=== PATIENT | male | born 1950 | race Caucasian/White ===

== ENCOUNTER 2017-11-29 08:00 | Outpatient (RCR) | payer MEDICARE, OTHER, SELFPAY ==
--- NOTE | 2017-11-24 14:39 | PTTR_ITS ---
DATE: 11/24/17 SUBJECTIVE: I am doing okay for the most part. OBJECTIVE: Therapeutic procedures ([id number]). * X HEP review: TEchnique review and corrective modification where appropriate. * X See flow sheet: Patient tolerated all strengthening activities well. * X Provided skilled instruction in proper exercise performance: [] * X Provided skilled manual cues to facilitate proper muscle recruitment and/ or movement pattern: [] * X Other: Patient was treated with additional stability motor control activities from the half kneel position as well as intrinsic strengthening. Direct treatment time: 30 minutes of direct patient care.
--- NOTE | 2017-11-27 11:57 | PTTR_ITS ---
DATE: 11/27/17 SUBJECTIVE: I am doing okay for the most part. OBJECTIVE: Therapeutic procedures ([id number]). * X HEP review: Technique review and corrective modification where appropriate. * X See flow sheet: Completed all activities per flow sheet. * X Provided skilled instruction in proper exercise performance: [] * X Provided skilled manual cues to facilitate proper muscle recruitment and/ or movement pattern: [] * X Other: Patient completed his corrective activity with good tolerance Direct treatment time: 30 minutes of direct patient care.
--- NOTE | 2017-11-29 11:01 | PTTR_ITS ---
DATE: 11/29/17 SUBJECTIVE: I am doing okay for the most part. OBJECTIVE: Therapeutic procedures ([id number]). * X HEP review: Technique review and corrective modification where appropriate. * X See flow sheet: Completed all corrective activities. * X Provided skilled instruction in proper exercise performance: [] * X Provided skilled manual cues to facilitate proper muscle recruitment and/ or movement pattern: [] * X Other: Patient was focused on his sub set of activities with greater emphasis on stability motor control and correct recruitment. He will now spend 3 weeks on the Minimally supervised program for stability and strengthening and will see him for follow up after that interval of time. Direct treatment time: 40 minutes of direct patient care.
== END 2017-12-15 23:59 | disposition home or self-care (01) ==
LOC: PT 08:00
PROVIDERS: PCP Internal Medicine; Referring Provider Internal Medicine; Visit Provider Internal Medicine
DX: M54.5 Low back pain (principal); M25.552 Pain in left hip; M51.16 Intervertebral disc disorders with radiculopathy, lumbar region; Z96.641 Presence of right artificial hip joint
CPT/HCPCS: 97110

== ENCOUNTER 2019-10-01 17:47 | Inpatient (IN) | payer MEDICARE, OTHER, SELFPAY ==
[2019-10-01] VITALS (21 sets, daily range): BP systolic 126–147; BP diastolic 65–76; PULSE 52–64; RESP 17–22; TEMP 36.6–36.7; O2SAT 94–100
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
[2019-10-01] MEDS: Ondansetron 4 MG/2 ML VIAL IVP (18:16)
[2019-10-01] MEDS: Normal Saline 1,000 ML 1000 ML IV (18:17)
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
[2019-10-01 18:41] LABS: Abs Immature Grans 0.06 k/cumm (0.0-0.09); Absolute Basophil Count 0.02 k/cumm (0.0-0.2); Absolute Lymphocyte Count 1.81 k/cumm (1.2-3.4); Absolute Monocyte Count 0.58 k/cumm (0.11-0.7); Absolute Neutrophil Count 4.29 k/cumm (1.2-6.7); Basophils % 0.3; Eosinophils % 2.9; HCT 40.9 % (40.0-50.0); Immature Grans % 0.9 %; Mean Corp. HGB Concentration 34.2 g/dL (32.0-36.0); Mean Corpuscular Hemoglobin 30.7 pg (27.0-33.0); Mean Corpuscular Volume 89.7 fL (80-95); Mean Platelet Volume 11.2 fL (8.0-11.0); Monocytes % 8.3; Neutrophils % 61.6; Platelet Count 215 x1000/uL (130-400); RBC 4.56 m/cumm (4.50-6.00); RBC Distribution Width 11.7 % (11.8-14.1); White Blood Cell Count 6.96 k/cumm (4.4-10.8)
[2019-10-01] MEDS: Omnipaque 350 MG/ML 100 ML BTL IV (19:03)
[2019-10-01 19:05] LABS: ALT 42 U/L (16-63); AST 33 U/L (15-37); Albumin 4.2 g/dL (3.4-5.0); Alkaline Phosphatase 67 U/L (46-116); Anion Gap 8.4 mmol/L (3-11); BUN 24 mg/dL (7-18); Bilirubin, Total 0.5 mg/dL (0.2-1.0); CO2 29.6 mmol/L (21.0-32.0); Calcium 9.2 mg/dL (8.5-10.1); Chloride 104 mmol/L (98-107); Glucose 139 mg/dL (74-106); Potassium 3.8 mmol/L (3.5-5.1); Sodium 142 mmol/L (136-145); Total Protein 6.9 g/dL (6.4-8.2)
[2019-10-01] MEDS: Normal Saline - Diluent 50 ML VIAL IV (19:05)
[2019-10-01] MEDS: Normal Saline Flush 10 ML SYR IVP ×2 (19:06→23:38)
[2019-10-01 19:14] LABS: Troponin I < 0.05 ng/mL (<0.06)
[2019-10-01] MEDS: Tetanus & Diphtheria Tox,ADULT 0.5 ML VIAL IM (19:14)
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
--- NOTE | 2019-10-01 19:27 | NUR.NOTE ---
pt placed on nrb 15l for pneumo per report:
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
--- NOTE | 2019-10-01 20:07 | NUR.NOTE ---
pt changed to 2l/nc per md order. all wounds cleansed with hibiclens and bacitracin ointment eith non-adherent dressings in place:
[2019-10-01 22:08] LABS: Troponin I < 0.05 ng/mL (<0.06)
[2019-10-01] MEDS: MORPHine 2 MG/ML SYR 4 MG IVP (23:37)
[2019-10-01] MEDS: Ketorolac 15 MG/ML VIAL IVP (23:37)
[2019-10-02 04:00] VITALS: BP 138/70; PULSE 48; RESP 19; TEMP 36.8; O2SAT 99
[2019-10-02] MEDS: MORPHine 2 MG/ML SYR 4 MG IVP ×3 (04:12→13:01)
[2019-10-02 07:33] VITALS: BP 133/70; PULSE 59; RESP 21; TEMP 36.8; O2SAT 98
[2019-10-02] MEDS: Ketorolac 15 MG/ML VIAL IVP (07:36)
[2019-10-02] MEDS: Acetaminophen 325 MG TAB 650 MG PO (07:37)
[2019-10-02] MEDS: Normal Saline Flush 10 ML SYR IVP ×2 (07:37→13:02)
--- NOTE | 2019-10-02 08:15 | DI.RAD_ITS ---
EXAM: XR CHEST 2V PA LATERAL CLINICAL HISTORY: pneumothorax TECHNIQUE: 2D digital imaging was performed. COMPARISON: CT CT CHEST/ABD/PEL W from 10/01/[address] THORACIC LUMBAR SPINE REC from 10/01/2019 FINDINGS: The heart size is within normal limits. There is mild left basilar atelectasis. A left 2nd rib frac ture is seen. No additional rib fractures are visible but were present on the prior CT. No pneumoth orax is visible. IMPRESSION: Left upper rib fracture. No visible pneumothorax. Left basilar atelectasis. DATA REPOSITORY: RADIATION DOSE DELIVERED:
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
--- NOTE | 2019-10-02 13:28 | DI.RAD_ITS ---
EXAM: XR ACROMIO CLAVICULAR JOINTS CLINICAL HISTORY: Left shoulder separation TECHNIQUE: 2D digital imaging was performed. COMPARISON: CR XR CHEST 2V PA LATERAL from 10/02/2019 CR XR SHOULDER LT COMPLETE 2+V from 10/02/2019 FINDINGS: There is widening of the AC joint. The clavicle projects superior to the acromion. There is wideni ng of the coracoclavicular distance. There is a bony density seen at the AC joint which does not nelida ear acute. The humeral head is normally position. There is spurring at the glenohumeral joint and u ndersurface of the acromion. There is no shoulder dislocation. Fractures of the right 2nd through 6 th ribs are seen. There is a tiny left pneumothorax seen best on the scapular Y-view. IMPRESSION: Acromioclavicular joint separation. Degenerative changes of the glenohumeral joint. Left rib fract ures and tiny left pneumothorax.
--- NOTE | 2019-10-02 13:42 | DI.CT_ITS ---
EXAM: CT UPPER EXTREMITY LT WO CLINICAL HISTORY: Left shoulder rotator cuff arthropathy, acute shoulder separation TECHNIQUE: Imaging Protocol: Axial computed tomography images with coronal and sagittal reformatted images were created and reviewed. Exam was repeated constructed from the chest CT. CONTRAST MATERIAL: Intravenous: Omnipaque 350 Contrast volume:100 cc COMPARISON: CR XR SHOULDER LT COMPLETE 2+V from 10/02/2019 FINDINGS: No clavicle fracture is seen. The sternoclavicular joint appears intact. The end of the clavicle pr ojects superior to the level of the acromion. There is a smoothly marginated bony density seen adjac ent to the distal clavicle which appears chronic. There is a small amount of air superior to the dis jennifer clavicle along with soft tissue swelling. There is spurring at the undersurface of the acromion. There are advanced degenerative changes of the glenohumeral joint, with inferior spurring and subch ondral cyst formation. Subchondral cysts are seen near the greater and lesser tuberosities. The hum eral head appears normally positioned. There are fractures of the right 2nd through 6th ribs and a s mall left pneumothorax. Small amount of air is seen outside the left chest wall. IMPRESSION: Acromioclavicular joint separation. Left upper rib fractures and tiny left pneumothorax. RADIATION DOSE DELIVERED: Total DLP DATA REPOSITORY: All CT scans at this facility are submitted to the National Radiology Data Registry (NRDR) Dose Index Registry (DIR) with the [employer] (A[employer]). RADIATION OPTIMIZATION: All CT scans at this facility use at least one of these dose optimization te chniques: automated exposure control; mA and/or kV adjustment per patient size (includes targeted exa ms where dose is matched to clinical indication); or iterative reconstruction.
[2019-10-02] MEDS: oxyCODONE 5 MG TAB PO (14:40)
--- NOTE | 2019-10-02 15:08 | CHAPLAIN ---
James was resting in bed when I visited this afternoon. He believes he'll be discharged soon after taking a pain med and making sure he's okay with. His Angelita sent up glover to him from their garden, and some of the people he was biking with a the time he fell, sent cards. James said he's not sure when he'll get to bike again as he needs to wait and see if his rotator cuff is torn or if his shoulder is .
[2019-10-02 15:15] LABS: COVID-19 RT-PCR UVMMC Result Negative (Negative)
--- NOTE | 2019-10-02 16:29 | INITIAL_ITS ---
- If Service Date Differs Date of service: 10/02/19 Time of Service: 16:29 Care Management Initial Assess REASON FOR HOSPITALIZATION:: Syncope PAST MEDICAL HISTORY/PAST SURGICAL HISTORY:: Medical History (Updated 10/02/19 @ 09:44 by Arlen Zimmerman MD). BPH (benign prostatic hyperplasia) (Chronic). Depression (Chronic). Hyperlipidemia (Acute). Rotator cuff arthropathy of both shoulders (Acute). Surgical History (Updated 10/02/19 @ 09:30 by Arlen alves MD). History of total right hip arthroplasty (Acute) PREVIOUS FUNCTIONAL STATUS/SOCIAL/FAMILY SUPPORTS:: James lives in [facility] with his , Yamilka. He reports that they have a very supportive relationship. 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 He is very active and independent at baseline. CURRENT FUNCTIONAL STATUS:: James was lying in bed when CM met with him. He reported that he is in pain, but does wish to return home today. He stated that he may have a torn rotator cuff, but does not know if he wants to have surgery right now. Per report, he will be discharged today with outpatient follow up. CM will continue to follow. ADVANCE DIRECTIVES:: None on file. Has patient been provided with info about the portal/API?: No Did the patient sign up for the portal?: No CODE STATUS:: Full Code INSURANCE COVERAGE / FINANCIAL ISSUES:: INES/ Raquel CURRENT HOME/COMMUNITY SERVICES/EQUIPMENT:: No current equipment or services in the community. PRIMARY CARE PHYSICIAN:: Suzette Aguilera POTENTIAL DISCHARGE NEEDS:: Evaluations for further needs, follow up appointments PATIENT/FAMILY EDUCATION NEEDS:: Review discharge instructions regarding activity levels and medications, discussion of self care needs including ask me three ANTICIPATED BARRIERS TO DISCHARGE:: None identified at this time. TRANSPORTATION:: Via private vehicle by his . PLAN:: Anticipate James will return home with no additional services when ready. He will follow up with Ortho, his PCP, and his discharge plan of care. His will drive him home via private vehicle. CM will continue to follow.
--- NOTE | 2019-10-02 16:36 | PDOC.CMDIS ---
- If Service Date Differs Date of service: 10/02/19 Time of Service: 16:36 LACE Index Scoring Tool - Questions: Length of Stay (in days): 2 Acuity (Admit via E.D.?): Yes E.D. Visits: 1 - Answers: Total Score: 6 Risk of Readmission: Low Risk Care Management Discharge Reason for Hospitalization: Syncope Discharge Plan: James will return home with no additional services at this time. He will follow up with his PCP, Ortho, and his discharge plan of care. His will drive him home via private vehicle. He is happy to return home. Patient/Family Education Needs: Review discharge instructions regarding activity levels and medications, discussion of self care needs including ask me three
== END 2019-10-02 15:47 | disposition home or self-care (01) | DRG 554 ==
LOC: ER 20:22 → MS 20:44
PROVIDERS: Student in an Organized Health Care Education/Training Program; Admitting Provider Surgery; Emergency Provider Registered Nurse Emergency; PCP Internal Medicine; Visit Provider Surgery
DX: M19.011 Primary osteoarthritis, right shoulder (principal); S27.0XXA Traumatic pneumothorax, initial encounter; S06.0X9A Concussion with loss of consciousness of unspecified duration, initial encounter; S22.42XA Multiple fractures of ribs, left side, initial encounter for closed fracture; S43.102A Unspecified dislocation of left acromioclavicular joint, initial encounter; R55 Syncope and collapse; S80.212A Abrasion, left knee, initial encounter; S41.012A Laceration without foreign body of left shoulder, initial encounter; V19.88XA Pedal cyclist (driver) (passenger) injured in other specified transport accidents, initial encounter; Y93.55 Activity, bike riding; M54.9 Dorsalgia, unspecified; R07.81 Pleurodynia; G89.11 Acute pain due to trauma; M25.512 Pain in left shoulder; M19.012 Primary osteoarthritis, left shoulder
CPT/HCPCS: 36415; 74177; 76942; 80053; 90471; 93005; 96361; 96374; 96375; 96376; 99222; 99223; 99236; 99239; 99254; 99285; U0003; 70450; 71046; 71260; 72125; 73030; 73050; 73200; 83735; 84484; 85025; 93010; 93306; J1885; J2270; J2405; J3490; L3650